=== PATIENT | female | born 1965 | race Hispanic/Latino ===

== ENCOUNTER 2024-01-27 14:58 | Emergency (ER) | payer SELFPAY ==
[~2024-01-27] VITALS: Ht 167.6 cm; Wt 83.9 kg
[2024-01-27 15:06] VITALS: PULSE 74; RESP 12; TEMP 97.5; O2SAT 95
[2024-01-27] MEDS: TETANUS/DIPHTHERIA TOX ADULT 0.5 ML SYR IM ONE ×2 (15:33→15:55)
[2024-01-27] MEDS: LIDOCAINE 1% W/EPINEPHRINE 20 ML VIAL INJ ONE (15:54)
[2024-01-27] MEDS: NEOMYCIN/POLYMYX/BACITR OINT 0.9 GM PKT TOP ONE (15:59)
== END 2024-01-27 16:09 | disposition home or self-care (01) ==
LOC: ER 15:06
DX: S01.112A Laceration without foreign body of left eyelid and periocular area, initial encounter (principal); W01.0XXA Fall on same level from slipping, tripping and stumbling without subsequent striking against object, initial encounter; Y93.01 Activity, walking, marching and hiking; Y92.89 Other specified places as the place of occurrence of the external cause; I10 Essential (primary) hypertension
CPT/HCPCS: 90471; 99282